=== PATIENT | female | born 1960 | race Caucasian/White ===

== ENCOUNTER 2016-05-20 05:18 | Observation (INO) | payer BC, OTHER ==
[2016-05-09 15:10] VITALS: BMI 32.0
[2016-05-20] VITALS (9 sets, daily range): BP systolic 122–149; BP diastolic 74–90; PULSE 67–86; TEMP 36.6–37; O2SAT 94–98; Ht 162.6 cm; Wt 85.9 kg
[~2016-05-20] VITALS: Ht 162.6 cm; Wt 85.9 kg
[~2016-05-20 05:18] MED LIST: ASPI-461 PO; CHOL200010 PO; CRFL PO; DIAZ10TA PO; HYDR500C3 PO; LEVO75TA5 PO; MULTTAB58 PO; OMEP20TA PO; SPIR25TA89 PO
[2016-05-20] MEDS ORDERED: LACTATED RINGER'S 1000ML 1,000 ML IV SCH (06:00)
[2016-05-20] MEDS ORDERED: CEFAZOLIN 2000 MG/60 ML D5W IV SCH (06:00)
[2016-05-20] MEDS ORDERED: FENTANYL CITRATE INJ 50 MCG/1 ML 2 ML VIAL ONE (06:36)
[2016-05-20] MEDS ORDERED: PROPOFOL IV EMULSION 10 MG/ML 20 ML VIAL IV ONE ×2 (06:36→07:13)
[2016-05-20] MEDS ORDERED: MIDAZOLAM HCL 1 MG/ML 2ML VIAL ONE ×2 (06:36→06:55)
[2016-05-20] MEDS ORDERED: DEXAMETHASONE SOD INJ 4 MG/ML VIAL ONE (06:36)
[2016-05-20] MEDS ORDERED: ONDANSETRON INJ 2 MG/ML 2 ML VIAL ONE (06:36)
[2016-05-20] MEDS ORDERED: LIDOCAINE HCL 2% 2 ML VIAL (20MG/ML) ONE (06:36)
[2016-05-20] MEDS ORDERED: ROCURONIUM BROMIDE 10 MG/ML 5 ML VIAL ONE (06:41)
--- NOTE | 2016-05-20 06:44 | History & Physical Bridge Note ---
H&P Re-Evaluation Bridge Note: I have examined the patient, reviewed the History & Physical and in the interval since the performance of the History & Physical I have noted the following changes of clinical significance: No changes noted
[2016-05-20] MEDS ORDERED: LIDOCAINE HCL 1% 20 ML VIAL ONE (06:56)
[2016-05-20] MEDS ORDERED: EpHEDrine SULFATE INJ 50 MG/ML AMP IV PRN (07:15)
[2016-05-20] MEDS ORDERED: FENTANYL CITRATE INJ 50 MCG/1 ML 2 ML VIAL IV PRN (07:15)
[2016-05-20] MEDS ORDERED: ATROPINE SULFATE 0.1 MG/ML 5ML SYR IV PRN (07:15)
--- NOTE | 2016-05-20 07:40 | [facility] Post Operative Brief Note ---
Immediate Operative Summary Operative Date May 20, 2016. Pre-Operative Diagnosis 2cm sebaceous cyst posterior left shoulder, 4cm lipoma left medial upper back Post-Operative Diagnosis same as pre-operative Procedure(s) Performed Excisional 2cm Sebaceous Cyst and 4cm Lipoma Upper Back Surgeon Dr. Victoriano Taylor Cna Ltc Surgeon(s) Magdy Ornelas PA-C Estimated Blood Loss 10ml Findings see above Specimens A: Lipoma left upper back B: Sebaceous cyst posterior left shoulder Anesthesia local sedation Complication(s) None Disposition Recovery Room / PACU
[2016-05-20] MEDS ORDERED: PROMETHAZINE HCL INJ 25 MG in SODIUM CHLORIDE 0.9% 50ML 50 ML IV PRN (07:45)
[2016-05-20] MEDS ORDERED: DIAZEPAM 5MG TAB PO PRN (07:45)
[2016-05-20] MEDS ORDERED: ONDANSETRON INJ 2 MG/ML 2 ML VIAL IV PRN (07:45)
[2016-05-20] MEDS ORDERED: IBUPROFEN 600 MG TAB PO PRN (07:45)
[2016-05-20] MEDS ORDERED: HYDROCODONE/ACETAMOPHEN 5/325MG TAB PO PRN ×2 (07:45)
--- NOTE | 2016-05-20 08:01 | OPERATIVE REPORT ---
DATE OF OPERATION: 05/20/2016 NAME OF OPERATION: Excision of 2 cm sebaceous cyst and 4 x 3 cm lipoma from the left upper back. PREOPERATIVE DIAGNOSES: Sebaceous cyst and lipoma. POSTOPERATIVE DIAGNOSES: Same. STAFF SURGEON: Dr. Taylor. FINAL CLEANER: Magdy Ornelas PA-C. ANESTHESIA: Local with sedation. PROCEDURE: The patient was brought in the operating room and placed on the operating room table in the prone position. She was then given IV sedation. Her left upper back prepped and draped in usual fashion. The lipoma was in the medial left upper back. 1% plain lidocaine was used to anesthetize skin and subcutaneous tissue over both areas. Incision was made over the lipoma, carrying dissection down, excising lipoma from the surrounding tissue and it was adherent to the fascia. It was measured at 4 x 3 cm. Deep tissue was reapproximated using 2-0 chromic catgut suture, then the skin reapproximated using subcuticular 4-0 Monocryl with a knot left on the outside. Steri-Strips were applied. The sebaceous cyst was approached. Elliptical incision was made around the cyst. It was in the left posterior shoulder area, in the upper back. The entire cyst was excised from surrounding tissue, it was 2 cm in diameter. The deep tissue was reapproximated using 2-0 chromic catgut suture, then the skin reapproximated using 5-0 Prolene suture. The patient was transferred to recovery room in stable condition. I attest to the content of the Intraoperative Record and any orders documented therein. Any exceptio ns are noted below.
[2016-05-20] MEDS ORDERED: HYDR-5688 PO (08:04)
--- NOTE | 2016-05-20 08:04 | Discharge Instructions ---
Discharge Instructions Admission Reason for Admission: Lipoma, Sebaceous Cyst Discharge Discharge Diagnosis / Problem: medina cyst, lipoma Discharge Goals Goal(s): Decrease discomfort, Improve function Activity Recommendations Activity Limitations: as noted below Lifting Limitations: no more than 25 pounds Exercise/Sports Limitations: until after follow-up appointment May Resume Sexual Activity: when tolerated Shower/Bathe: keep incision dry (may shower over incisions on 05/22) Driving or Machine Use: resume 1 day after discharge SPECIAL CARE INSTRUCTIONS: * Cover incisions and change daily for comfort/drainage. * Leave steri strips in place * May use ibuprofen for pain as tolerated. * Expect some swelling and bruising. Call your doctor if: * Temperature above 101 degrees * Pain not relieved by pain medicine ordered * There is increased drainage or redness from any incision * You have any unanswered questions or concerns [phone]. FOLLOW UP VISIT: If not already scheduled, please call the office for a follow-up visit. for next week- some suture removal OFFICE PHONE NUMBER: Dr. Taylor Office . Current Hospital Diet Patient's current hospital diet: Regular Diet Discharge Diet Recommended Diet: Regular Diet Procedures Procedures Performed: Excisional 2cm Sebaceous Cyst and 4cm Lipoma Upper Back Pending Studies Studies pending at discharge: no Medical Emergencies . Who to Call and When: Medical Emergencies: If at any time you feel your situation is an emergency, please call 911 immediately. . Non-Emergent Contact Non-Emergency issues call your: Primary Care Provider, Surgeon . "Provider Documentation" section prepared by Victoriano Taylor. VTE Core Measure Inpt VTE Proph given/why not?: SCD's
--- NOTE | 2016-05-20 08:06 | Anesthesiology Progress Note ---
Anesthesia Post Op Note Date & Time May 20, 2016 at 08:06 Vital Signs Pain Intensity: 0 Vital Signs Past 12 Hours Date Time Temp Pulse Resp B/P Pulse Ox O2 Delivery O2 Flow Rate FiO2 05/20/16 08:00 72 24 136/85 96 Nasal Cannula 2 05/20/16 07:50 73 12 118/88 100 Nasal Cannula 2 05/20/16 07:43 36.3 77 16 117/74 98 Nasal Cannula 2 05/20/16 05:41 36.6 82 20 128/76 95 Room Air Notes Mental Status: alert / awake / arousable, participated in evaluation Pt Amnestic to Procedure: Yes Nausea / Vomiting: adequately controlled Pain: adequately controlled Airway Patency, RR, SpO2: stable & adequate BP & HR: stable & adequate Hydration State: stable & adequate Anesthetic Complications: no major complications apparent
[2016-05-20] MEDS ORDERED: PROMETHAZINE HCL INJ 12.5 MG in SODIUM CHLORIDE 0.9% 50ML 50 ML IV PRN (08:15)
[2016-05-20] MEDS ORDERED: IV FLUIDS COMPLETED PRN ×2 (08:15→09:15)
[2016-05-20] MEDS: SPIRONOLACTONE 25 MG TAB PO SCH (09:37)
[2016-05-20] MEDS: HYDROXYUREA 500 MG CAP PO SCH (10:12)
[2016-05-20] MEDS: PANTOprazole SOD 40 MG TAB PO SCH ×2 (10:50→21:10)
--- NOTE | 2016-05-20 11:43 | Medical Consult ---
Consultation Date of Consultation: May 20, 2016. Attending Physician: Victoriano Taylor M.D. Reason for Consultation: Medical management History of Present Illness This patient is a 56-year-old female that underwent an excision of 2 back masses today with Dr. Taylor. One was reported a lipoma. She is unsure of what the other one was. She currently has no complaints. Denies any significant pain. No nausea. She is tolerating a diet. She has not yet passed gas since the surgery. She denies any chest pain or difficulty breathing. The patient denies any personal history of coronary artery disease or blood clots. She does have chronic thrombocytosis. She had her labs checked last week. She thinks that her platelet count was around 500,000. 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.) Allergies Coded Allergies: Latex1 -Allergic Contact Dermititis (Verified Allergy, Mild, RASH, 05/20/16 ) Current Inpatient Medications Current Inpatient Medications Medications (Trade) Dose Ordered Sig/Dipti Route Start Time Stop Time Status Last Admin Dose Admin Cefazolin Sodium (Ancef 2000mg/60 ml D5W) 60 ml @ 100 mls/hr PREOP IV 05/20/16 06:00 05/20/16 18:00 05/20/16 06:52 100 MLS/HR Fentanyl Citrate (Fentanyl Inj) 25 mcg Q5M PRN IV 05/20/16 07:15 05/20/16 12:15 Ephedrine Sulfate (EpHEDrine SULFATE INJ) 5 mg Q5M PRN IV 05/20/16 07:15 05/20/16 12:15 Atropine Sulfate (Atropine Sulfate 0.1MG/Ml Inj) 0.5 mg Q1M PRN IV 05/20/16 07:15 05/20/16 12:15 Diazepam (Valium Tab) 10 mg HS PRN PO 05/20/16 07:45 06/19/16 07:44 Hydroxyurea (Hydrea Cap) 500 mg DAILY PO 05/20/16 09:00 06/19/16 08:59 05/20/16 10:12 500 MG Levothyroxine Sodium (Synthroid Tab) 75 mcg DAILYBB PO 05/21/16 06:00 06/20/16 05:59 Spironolactone (Aldactone Tab) 25 mg QAM PO 05/20/16 09:00 06/19/16 08:59 Pantoprazole Sodium 40 mg 40 mg BID PO 05/20/16 09:00 06/19/16 08:59 05/20/16 10:50 40 MG Cefazolin Sodium/ Dextrose (Ancef Iv/D5 50ml) 55 ml @ 100 mls/hr Q8 IV 05/20/16 14:00 05/21/16 13:59 Acetaminophen/ Hydrocodone Bitart ([place] 5/325 Tab) 1 tab Q4 PRN PO 05/20/16 07:45 06/03/16 07:44 Acetaminophen/ Hydrocodone Bitart 2 tab 2 tab Q4 PRN PO 05/20/16 07:45 06/03/16 07:44 Promethazine HCl/ Sodium Chloride (Phenergan Inj/ Nss 50ml) 51 ml @ 204 mls/hr Q6H PRN IV 05/20/16 07:45 06/19/16 07:44 Ondansetron HCl (Zofran Inj) 4 mg Q6H PRN IV 05/20/16 07:45 06/19/16 07:44 Ibuprofen 600 mg 600 mg QID PRN PO 05/20/16 07:45 06/19/16 07:44 Promethazine HCl/ Sodium Chloride (Phenergan Inj/ Nss 50ml) 50.5 ml @ 204 mls/hr Q6H PRN IV 05/20/16 08:15 06/19/16 08:14 Miscellaneous (Iv Fluids Completed) 1 ea PRN PRN N/A 05/20/16 08:15 05/20/17 08:14 Review of Systems 10 system review performed and negative unless noted in HPI or below Physical Exam Date Time Temp Pulse Resp B/P Pulse Ox O2 Delivery O2 Flow Rate FiO2 05/20/16 11:31 86 18 144/86 94 Room Air 05/20/16 10:28 71 18 138/77 98 Room Air 05/20/16 09:43 71 18 136/87 05/20/16 08:55 36.6 71 18 133/87 98 Room Air 05/20/16 08:25 36.6 67 16 147/90 95 Room Air 05/20/16 08:25 Room Air 05/20/16 08:25 Nasal Cannula 2.0 05/20/16 08:15 71 19 141/86 97 Room Air 05/20/16 08:05 36.2 68 17 122/84 97 Room Air 05/20/16 08:00 72 24 136/85 96 Nasal Cannula 2 05/20/16 07:50 73 12 118/88 100 Nasal Cannula 2 05/20/16 07:43 36.3 77 16 117/74 98 Nasal Cannula 2 05/20/16 05:41 36.6 82 20 128/76 95 Room Air General Appearance: no apparent distress Head: normocephalic Eyes: EOMI Neck: no JVD Respiratory/Chest: lungs clear Cardiovascular: regular rate, rhythm Abdomen/GI: normal bowel sounds, non tender, soft, no organomegaly Extremities/Musculoskelatal: no calf tenderness, no pedal edema Neurologic/Psych: no motor/sensory deficits, oriented x 3 Assessment & Plan 56-year-old female status post excision of 2 masses on her back today. Postoperatively, the patient is doing well -pain management, DVT prophylaxis, PT per primary team history of thrombocytosis -Restart aspirin 81 mg daily when okay with primary team -Continue hydroxyurea. The patient is due for 500 mg today, 500 mg tomorrow and then will take 1000 mg the following day (then repeat) Hypothyroidism -Continue Synthroid 75 g daily History of restless leg syndrome, anxiety -Continue diazepam 10 mg at night as needed GERD -Continue Carafate as needed Questionable history of hypertension -Continue spironolactone 25 mg daily Thank you for this consultation. We will continue to follow.
[2016-05-20] MEDS: CEFAZOLIN IV 1,000 MG in DEXTROSE 5% 50ML 50 ML IV SCH ×2 (13:29→22:08)
[2016-05-21 03:25] VITALS: BP 132/78; PULSE 77; TEMP 36.6; O2SAT 97
[2016-05-21] MEDS: CEFAZOLIN IV 1,000 MG in DEXTROSE 5% 50ML 50 ML IV SCH (05:47)
[2016-05-21] MEDS ORDERED: LEVOTHYROXINE 75 MCG TAB PO SCH (06:00)
--- NOTE | 2016-05-21 06:51 | DISCHARGE SUMMARY ---
PRINCIPAL DIAGNOSIS: Lipoma and sebaceous cyst on the back. PROCEDURES: The patient underwent excision of sebaceous cyst and lipoma from the left upper back. HISTORY OF PRESENT ILLNESS: The patient is a 56-year-old female who does have a platelet disorder and had some masses which ended up being a sebaceous cyst and lipoma of the back. I was concerned about her potential for bleeding; therefore, I performed the operation at the hospital with observation. HOSPITAL COURSE: The patient was brought in the hospital on 05/20/2016. She was taken to the operating room where she underwent excision under local sedation of the sebaceous cyst and lipoma from the left upper back. She did very well from this and has done well overnight with no evidence of drainage or acute bleeding. She is stable for discharge home today to be followed in the surgical clinic next week.
[2016-05-21 06:56] LABS: BUN/CREATININE RATIO 16.4 (10-20); CALCIUM 8.8 mg/dl (8.5-10.1); CREATININE 0.83 mg/dl (0.60-1.20)
[2016-05-21 07:07] LABS: CHOLESTEROL/HDL RATIO 5.2; THYROID STIMULATING HORMONE 3.2 uIu/ml (0.300-4.500)
[2016-05-21] MEDS: PANTOprazole SOD 40 MG TAB PO SCH (07:07)
[2016-05-21 07:39] VITALS: BP 143/84; PULSE 80; TEMP 36.4; O2SAT 94
[2016-05-21 08:13] VITALS: BP 143/84; PULSE 80; TEMP 36.4; O2SAT 94
[2016-05-21] MEDS: SPIRONOLACTONE 25 MG TAB PO SCH (08:42)
[2016-05-21] MEDS: HYDROXYUREA 500 MG CAP PO SCH (08:42)
== END 2016-05-21 09:30 | disposition home or self-care (01) ==
LOC: ENRESERVDT → ENRESERVTM → C.ACU 05:18 → C.MSW 07:46
PROVIDERS: ADMIT Surgery; ATTEND Surgery
DX: D17.1 Benign lipomatous neoplasm of skin and subcutaneous tissue of trunk (principal); L72.0 Epidermal cyst; D47.3 Essential (hemorrhagic) thrombocythemia; E03.9 Hypothyroidism, unspecified; K21.0 Gastro-esophageal reflux disease with esophagitis; E55.9 Vitamin D deficiency, unspecified; Z79.899 Other long term (current) drug therapy; Z79.82 Long term (current) use of aspirin; Z80.49 Family history of malignant neoplasm of other genital organs; Z83.3 Family history of diabetes mellitus; Z82.49 Family history of ischemic heart disease and other diseases of the circulatory system; Z80.3 Family history of malignant neoplasm of breast

== ENCOUNTER → 2017-04-23 | Day surgery (SDC) | payer OTHER ==
[~2017-04-23] VITALS: Ht 162.6 cm; Wt 86.5 kg
[~2017-04-23] MED LIST changes: +EZET10TA63 PO
[2017-04-23 07:39] VITALS: BP 139/83; PULSE 82; TEMP 36.4; O2SAT 96; Ht 162.6 cm; Wt 86.5 kg
[2017-04-23] MEDS: COSYNTROPIN INJ 1 MCG in SYRINGE 0 ML IV SCH ×2 (07:50→07:56)
[2017-04-23 08:27] VITALS: BP 134/83; PULSE 78; TEMP 36.8; O2SAT 95
[2017-04-23 08:57] VITALS: BP 128/80; PULSE 77; TEMP 36.8; O2SAT 95
== END | disposition home or self-care (01) ==
LOC: C.MTU 07:22
PROVIDERS: ATTEND Internal Medicine Endocrinology, Diabetes & Metabolism
DX: R79.9 Abnormal finding of blood chemistry, unspecified (principal); R89.9 Unspecified abnormal finding in specimens from other organs, systems and tissues; R53.83 Other fatigue

== ENCOUNTER → 2017-07-21 | Outpatient (CLI) | payer OTHER ==
[~2017-07-21] MED LIST changes: -SPIR25TA89 PO
== END | disposition home or self-care (01) ==
LOC: C.PAPS 11:34
PROVIDERS: ATTEND Family Medicine
DX: Z12.4 Encounter for screening for malignant neoplasm of cervix (principal)

== ENCOUNTER 2017-12-01 11:20 | Emergency (ER) | payer OTHER ==
[~2017-12-01] VITALS: Ht 162.6 cm; Wt 83.0 kg
[2017-12-01 11:24] VITALS: TEMP 36.5; Ht 162.6 cm; Wt 83.0 kg
[2017-12-01] MEDS ORDERED: HYDROCODONE/ACETAMINOPHEN 7.5/325MG TAB PO STA (11:47)
--- NOTE | 2017-12-01 12:20 | DIAGNOSTIC IMAGING REPORT ---
R ELBOW MIN 3 VIEWS ROUTINE CLINICAL HISTORY: R wrist/elbow painR pain. Trauma. COMPARISON: None. DISCUSSION: The bones and joint spaces appear intact. There is no evidence of fracture, dislocation or bony disease. There is no evidence for soft tissue swelling. IMPRESSION: Negative study. The above report was generated using voice recognition software. It may contain grammatical, syntax or spelling errors. Electronically signed by: Bob Adrian M.D. 12/01/2017 12:19 PM Dictated Date/Time: 12/01/2017 12:17 PM
--- NOTE | 2017-12-01 12:20 | DIAGNOSTIC IMAGING REPORT ---
R WRIST MIN 3 VIEWS ROUTINE CLINICAL HISTORY: Right wrist pain status post trauma COMPARISON: None. DISCUSSION: There is acute impaction fracture of the distal radius. The radial articular surface demonstrates a normal anatomic slight volar tilt. There is no associated ulnar fracture. IMPRESSION: Acute nondisplaced fracture of the distal radius. Electronically signed by: Martinez Lion M.D. 12/01/2017 12:18 PM Dictated Date/Time: 12/01/2017 12:17 PM
[2017-12-01] MEDS ORDERED: HYDR-3983 PO (12:33)
[2017-12-01 12:47] VITALS: BP 140/87; PULSE 92; O2SAT 95
--- NOTE | 2017-12-01 18:16 | EMERGENCY ROOM VISIT NOTE ---
History First contact with patient: 11:36 Chief Complaint: ARM PAIN Stated Complaint: RT WRIST PAIN, ARM, ELBOW PAIN, FELL ON IT History of Present Illness The patient is a 57 year old female who presents to the Emergency Room with complaints of right upper extremity pain after she fell off of a chair this morning. She reports that all of her weight landed on her right hand. She denies head injury, neck pain, back pain, chest pain or abdominal pain. She reports pain that radiates from her hand to her shoulder, but denies any significant shoulder discomfort. She complains mostly of wrist pain, rating her discomfort a 7 out of 10, and elbow pain rated a 4 out of 10. She denies paresthesias or numbness of the right hand and fingers, and is right-hand dominant. Review of Systems 10 system review was performed and was negative except for pertinent positives and negatives as indicated in history of present illness Past Medical/Surgical History Medical Problems: (1) Atypical chest pain (2) ET (essential thrombocythemia) (3) Fracture of right distal radius (4) Hypertension (5) Iron deficiency anemia (6) Lipoma of back (7) Sebaceous cyst (8) Thrombocytosis Social History Smoking Status: Never Smoker Marital Status: Housing Status: lives with significant other Occupation Status: unemployed Current/Historical Medications Scheduled Aspirin (Aspirin), 81 MG PO QAM Cholecalciferol (Vitamin D), 2,000 TAB PO QAM Ezetimibe (Zetia), 10 MG PO DAILY Hydroxyurea (Hydrea Cap), 500 MG PO EVERY OTHER DAY Hydroxyurea (Hydrea Cap), 1,000 MG PO EVERY OTHER DAY Levothyroxine Sodium (Levothyroxine Sodium), 75 MCG PO QAM Multiple Vitamin (Multivitamin), 1 TAB PO QAM Omeprazole (Omeprazole), 40 MG PO BID Scheduled PRN Diazepam (Valium), 10 MG PO HS PRN for Sleep Hydrocodone/Acetaminophen 7.5MG/325MG ([place] 7.5MG/325MG), 1 TAB PO Q4 PRN for Pain Sucralfate (Carafate), 10 ML PO QID PRN for REFLUX Physical Exam Vital Signs Date Time Temp Pulse Resp B/P (MAP) Pulse Ox O2 Delivery O2 Flow Rate FiO2 12/01/17 12:47 92 16 140/87 95 Room Air 8/27/18 11:24 36.5 98 18 165/89 96 Room Air Physical Exam CONSTITUTIONAL: Healthy and well nourished. Alert and oriented X 3 with positive affect. Patient appears in moderate discomfort. HEENT: Normocephalic, atraumatic. Pupils equal, round and reactive. NECK: Full active range of motion without discomfort. MUSCULOSKELETAL: Examination shows edema of the right wrist. No open wounds noted. She has no focal tenderness through the metacarpals or phalanges. She has mild tenderness through the proximal forearm and elbow region. No obvious joint effusion noted. Capillary refill of the right hand is less than 2 seconds. INTEGUMENTARY: No rash or other significant dermatologic conditions noted. NEUROLOGIC: Right hand and fingers are sensory intact. Medical Decision & Procedures ER Provider Diagnostic Interpretation: My interpretation of right elbow x-rays does not show any risks, dislocation or obvious joint effusion. Radiologist report was reviewed. My interpretation of right wrist x-ray shows an impacted nondisplaced fracture that does not extend into the radiocarpal joint. No radiocarpal dislocation noted. Radiologist report is as follows: R WRIST MIN 3 VIEWS ROUTINE CLINICAL HISTORY: Right wrist pain status post trauma COMPARISON: None. DISCUSSION: There is acute impaction fracture of the distal radius. The radial articular surface demonstrates a normal anatomic slight volar tilt. There is no associated ulnar fracture. IMPRESSION: Acute nondisplaced fracture of the distal radius. Medications Administered Medications (Trade) Dose Ordered Sig/Dipti Route Start Time Stop Time Status Last Admin Dose Admin Acetaminophen/ Hydrocodone Bitart ([place] 7.5/325 Tab) 1 tab NOW STAT PO 12/01/17 11:47 12/01/17 11:48 DC 12/01/17 11:53 1 TAB ED Course Patient history and physical exam were performed. Nurse's notes were reviewed. Vital signs were reviewed, showing an elevated blood pressure 165/89. This is likely secondary to pain. The patient was administered [place] 7.5/325 at the patient's request. X-rays of the right wrist confirms a distal radius fracture that is nondisplaced or angulated. It is also not intra-articular. Elbow x- rays were normal. A volar Ortho-Glass splint was applied. Neurovascular check was intact after splint placement. The patient was encouraged to follow-up with Dr. Smart for further reevaluation and management. She was encouraged to ice and elevate the wrist for swelling. Ibuprofen or Tylenol as needed for baseline pain relief. The patient was provided a prescription for [place] 7.5/325 , dispensed #15 with no refills. This medication choice was at the request of the patient as she does not do well with Percocet, and reports that the [place] dosing has to be high enough to provide any relief. The [place] prescription Drug monitoring Program was reviewed with no red flags. The patient was happy with plan of care, and voiced understanding of all discharge instructions, rating her pain a 4 out of 10 at the time of discharge. The patient was also seen and examined by Dr. Villagomez, ED attending physician, who agrees with workup and plan of care. Medical Decision [place] Drug Monitoring Program Search Results: patient reviewed within database, no issues identified Medication Reconcilliation Current Medication List: was personally reviewed by me Blood Pressure Screening Patient's blood pressure: Elevated blood pressure Blood pressure disposition: Elevated BP felt to be situational Impression Primary Impression: Fracture of right distal radius Additional Impression: Fall from chair Departure Information Prescriptions Hydrocodone/Acetaminophen 7.5MG/325MG ([place] 7.5MG/325MG) Tab 1 TAB PO Q4 Y for Pain, #10 TAB For Initial Treatment Prov: Marques Leon PA 12/01/17 Referrals Bir Layne MD (PCP) Patient Instructions My [facility] Problem Qualifiers Primary Impression: Fracture of right distal radius Encounter type: initial encounter Fracture type: closed Fracture morphology : other extra-articular Qualified Codes: S52.551A - Other extraarticular fracture of lower end of right radius, initial encounter for closed fracture Additional Impression: Fall from chair Encounter type: initial encounter Qualified Codes: W07.XXXA - Fall from chair, initial encounter
== END 2017-12-01 12:58 | disposition home or self-care (01) ==
LOC: C.EDB 11:22 → C.EDD 12:58
DX: S52.551A Other extraarticular fracture of lower end of right radius, initial encounter for closed fracture (principal); W07.XXXA Fall from chair, initial encounter; D69.6 Thrombocytopenia, unspecified; I10 Essential (primary) hypertension; Z79.82 Long term (current) use of aspirin; Z79.899 Other long term (current) drug therapy